=== PATIENT | female | born 1995 | race American Indian/Alaskan Native ===

== ENCOUNTER 2017-11-26 14:29 | Emergency (ER) | payer MEDICAID, OTHER ==
[2017-11-26 14:29] VITALS: BMI 28.5
[2017-11-26 14:52] VITALS: BP 118/79; PULSE 72; RESP 14; TEMP 98.1; O2SAT 100
--- NOTE | 2017-11-26 15:04 | C.PDOC ---
History Of Present Illness 22 year old female presents to the ED for evaluation of throat pain which began a couple days ago. Patient reports seeing a dark spot in the back of her throat. Patient also complains of anal pressure felt right before she moves her bowels. She denies trouble swallowing, fever, chills, constipation, diarrhea. Time Seen by Provider: 11/26/17 14:59 Chief Complaint (Nursing): ENT Problem History Per: Patient History/Exam Limitations: no limitations Onset/Duration Of Symptoms: Days Current Symptoms Are (Timing): Still Present Additional History Per: Patient Past Medical History Reviewed: Historical Data, Nursing Documentation, Vital Signs Vital Signs: Last Vital Signs Temp 98.1 F 11/26/17 14:47 Pulse 72 11/26/17 14:47 Resp 14 11/26/17 14:47 BP 118/79 11/26/17 14:47 Pulse Ox 100 11/26/17 18:31 - Medical History PMH: Bronchitis Surgical History: No Surg Hx Family History: States: Unknown Family Hx - Social History Hx Tobacco Use: No Hx Alcohol Use: Yes Hx Substance Use: No - Immunization History Hx Tetanus Toxoid Vaccination: No Hx Influenza Vaccination: No Hx Pneumococcal Vaccination: No Review Of Systems Constitutional: Negative for: Fever, Chills ENT: Positive for: Throat Pain Gastrointestinal: Negative for: Diarrhea, Constipation Genitourinary: Positive for: Other (anal pressure ) Physical Exam - Physical Exam Appears: Non-toxic, No Acute Distress Skin: Normal Color, Warm, Dry Head: Atraumatic, Normacephalic Eye(s): bilateral: Normal Inspection, EOMI Ear(s): Bilateral: Normal Oral Mucosa: Moist Throat: Normal, No Erythema, No Exudate, No Other Neck: Supple Chest: Symmetrical, No Deformity, No Tenderness Cardiovascular: Rhythm Regular, No Murmur Respiratory: Normal Breath Sounds, No Rales, No Rhonchi, No Wheezing Extremity: Normal ROM Extremity: Bilateral: Atraumatic, Normal Color And Temperature, Normal ROM Neurological/Psych: Oriented x3, Normal Speech Gait: Steady ED Course And Treatment O2 Sat by Pulse Oximetry: 100 (on RA) Pulse Ox Interpretation: Normal Medical Decision Making Medical Decision Making: Patient is resting comfortably, showing no signs of distress and is stable for discharge. She is advised to follow up with her PMD within 1-2 days for further evaluation. Disposition Counseled Patient/Family Regarding: Need For Followup, Rx Given - Disposition Referrals: [facility] [Outside] [facility] [Outside] Disposition: HOME/ ROUTINE Disposition Time: 15:04 Condition: GOOD Additional Instructions: Your throat was normal, if you have any pain please follow up with your primary or clinic. 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 - Scribe Statement The provider has reviewed the documentation as recorded by the Scribe (Qiana Mcfadden) All medical record entries made by the Scribe were at my direction and personally dictated by me. I have reviewed the chart and agree that the record accurately reflects my personal performance of the history, physical exam, medical decision making, and the department course for this patient. I have also personally directed, reviewed, and agree with the discharge instructions and disposition.
== END 2017-11-26 15:50 | disposition home or self-care (01) ==
LOC: C.ER 14:29
DX: K59.00 Constipation, unspecified (principal)

== ENCOUNTER 2018-07-27 22:26 | Emergency (ER) | payer MEDICAID, OTHER ==
[2018-07-27 22:26] VITALS: BMI 28.5
[2018-07-27 22:51] VITALS: BP 135/80; PULSE 61; RESP 18; TEMP 98.4; O2SAT 100
--- NOTE | 2018-07-27 23:05 | C.PDOC ---
History Of Present Illness 22 y/o female with known history of sciatica presents to the ED complaining of pain to right lower back for the past few days worse with movements. States she usually has sciatica pain on the left and has never had it on the right. Denies recent fall or trauma. Otherwise denies any numbness, weakness, tingling, saddle anesthesia, dysuria, frequency, or incontinence. Additionally patient reports having intermittent dizziness, which is now resolved. Time Seen by Provider: 07/27/18 23:04 Chief Complaint (Nursing): Back Pain History Per: Patient History/Exam Limitations: no limitations Onset/Duration Of Symptoms: Days Current Symptoms Are (Timing): Still Present Previous Symptoms: Back Pain Associated Symptoms: None Past Medical History Reviewed: Historical Data, Nursing Documentation, Vital Signs Vital Signs: Last Vital Signs Temp 98.4 F 07/27/18 22:48 Pulse 61 07/27/18 22:48 Resp 18 07/27/18 22:48 BP 135/80 07/27/18 22:48 Pulse Ox 100 07/28/18 02:52 - Medical History PMH: Bronchitis Family History: States: Unknown Family Hx - Social History Hx Tobacco Use: No Hx Alcohol Use: Yes Hx Substance Use: No - Immunization History Hx Tetanus Toxoid Vaccination: No Hx Influenza Vaccination: No Hx Pneumococcal Vaccination: No Review Of Systems Except As Marked, All Systems Reviewed And Found Negative. Constitutional: Negative for: Fever, Chills Gastrointestinal: Negative for: Abdominal Pain Genitourinary: Negative for: Dysuria, Frequency, Incontinence Musculoskeletal: Positive for: Back Pain Neurological: Negative for: Weakness, Numbness, Incoordination Physical Exam - Physical Exam Appears: Non-toxic, No Acute Distress Skin: Normal Color, Warm, Dry Head: Atraumatic, Normacephalic Eye(s): bilateral: PERRL, EOMI, Other (No conjunctival pallor) Oral Mucosa: Moist Chest: Symmetrical Cardiovascular: Rhythm Regular Respiratory: Normal Breath Sounds Gastrointestinal/Abdominal: Bowel Sounds (normal), Soft, No Tenderness, No Distention Back: No CVA Tenderness, Muscle Spasm, Paraspinal Tenderness (to right paralumbar area), Straight Leg Raising (Right side (+) at 45 degrees) Extremity: Bilateral: Atraumatic, No Pedal Edema, Normal Color And Temperature Neurological/Psych: Oriented x3, Normal Speech, Normal Motor, Normal Sensation Gait: Steady ED Course And Treatment O2 Sat by Pulse Oximetry: 100 (RA) Pulse Ox Interpretation: Normal Progress Note: Patient is currently on her menses, given valium PO in the ED for her spasm. On reassessment, patient is resting comfortably, and is in no acute distress. Patient was instructed to follow up with physician/clinic in 1- 2 days for further evaluation. Reassessment Condition: Improved Disposition Counseled Patient/Family Regarding: Diagnosis, Need For Followup, Rx Given - Disposition Referrals: Non [facility] Provider, [Primary Care Provider] - Disposition: HOME/ ROUTINE Disposition Time: 23:05 Condition: STABLE Additional Instructions: Please follwo up with PMD Take medications as directed Return to ER if worse Prescriptions: Cyclobenzaprine [Cyclobenzaprine HCl] 10 mg PO HS #7 tab Ibuprofen [Motrin] 600 mg PO Q6H #20 tab Instructions: Low Back Pain (DC) Forms: [employer] (Mongolian), Work Excuse - POA Present On Arrival: None - Clinical Impression Clinical Impression: Low back pain - 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 - Scribe Statement The provider has reviewed the documentation as recorded by the Scribe (Yarelis Davila) All medical record entries made by the Scribe were at my direction and personally dictated by me. I have reviewed the chart and agree that the record accurately reflects my personal performance of the history, physical exam, medical decision making, and the department course for this patient. I have also personally directed, reviewed, and agree with the discharge instructions and disposition.
== END 2018-07-27 23:59 | disposition home or self-care (01) ==
LOC: SUPCPDRO 22:26 → C.ER 22:26
DX: M54.5 Low back pain (principal)

== ENCOUNTER 2018-10-23 18:30 | Emergency (ER) | payer SELFPAY ==
[2018-10-23 18:30] VITALS: BMI 28.5
[2018-10-23 18:41] VITALS: BP 118/79; PULSE 64; RESP 18; TEMP 98; O2SAT 100
--- NOTE | 2018-10-23 19:33 | C.PDOC ---
History Of Present Illness 22 year old female presents to the ED complaining of intermittent sore throat with associated cough for 2 weeks. Denies any fever, chills, ear pain, nose congestion, nausea, vomiting, chest pain, shortness of breath. Also complains of right shoulder pain for one week. Reports she does heavy lifting at work. Denies any trauma, injury, weakness, or numbness. Time Seen by Provider: 10/23/18 19:20 Chief Complaint (Nursing): ENT Problem History Per: Patient History/Exam Limitations: no limitations Onset/Duration Of Symptoms: Days Current Symptoms Are (Timing): Still Present Past Medical History Reviewed: Historical Data, Nursing Documentation, Vital Signs Vital Signs: Last Vital Signs Temp 98 F 10/23/18 18:36 Pulse 64 10/23/18 18:36 Resp 18 10/23/18 18:36 BP 118/79 10/23/18 18:36 Pulse Ox 100 10/23/18 18:36 - Medical History PMH: Bronchitis Surgical History: Family History: States: No Known Family Hx - Social History Hx Tobacco Use: No Hx Alcohol Use: Yes Hx Substance Use: No - Immunization History Hx Tetanus Toxoid Vaccination: No Hx Influenza Vaccination: No Hx Pneumococcal Vaccination: No Review Of Systems Except As Marked, All Systems Reviewed And Found Negative. Constitutional: Negative for: Fever, Chills ENT: Positive for: Throat Pain. Negative for: Ear Pain, Nose Discharge, Nose C ongestion Cardiovascular: Negative for: Chest Pain Respiratory: Positive for: Cough. Negative for: Shortness of Breath Gastrointestinal: Negative for: Nausea, Vomiting Musculoskeletal: Positive for: Shoulder Pain (right) Neurological: Negative for: Weakness, Numbness Physical Exam - Physical Exam Appears: Non-toxic, No Acute Distress Skin: Warm, Dry, No Rash Head: Normacephalic Eye(s): bilateral: Normal Inspection Nose: Normal Oral Mucosa: Moist Tongue: Normal Appearing Lips: Normal Appearing Teeth: Normal Dentition Gingiva: Normal Appearing Throat: Normal, No Erythema, No Exudate Neck: Supple Chest: Symmetrical Cardiovascular: Rhythm Regular Respiratory: No Rales, No Rhonchi, No Wheezing Extremity: Normal ROM, Capillary Refill (less than 2 sec to right shoudler), No Deformity, No Swelling Extremity: Bilateral: Atraumatic, Normal Color And Temperature, Normal ROM Neurological/Psych: Oriented x3, Normal Speech Gait: Steady ED Course And Treatment O2 Sat by Pulse Oximetry: 100 (RA) Pulse Ox Interpretation: Normal Progress Note: Patient given follow up instructions. Instructed to return to ER if symptoms worsen or new symptoms arise. Disposition Counseled Patient/Family Regarding: Diagnosis, Need For Followup, Rx Given - Disposition Referrals: [facility] [Outside] Disposition: HOME/ ROUTINE Disposition Time: 19:30 Condition: STABLE Additional Instructions: Take medications as directed Follow up with PMD Return to ER If worse Prescriptions: Cetirizine HCl [Zyrtec] 10 mg PO DAILY #14 capsule Ibuprofen [Motrin] 600 mg PO Q6H #20 tab Instructions: Shoulder Sprain (DC), Viral Pharyngitis (DC) Forms: 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 - Scribe Statement The provider has reviewed the documentation as recorded by the Scribgume Huffman All medical record entries made by the Raffiibgume were at my direction and personally dictated by me. I have reviewed the chart and agree that the record accurately reflects my personal performance of the history, physical exam, medical decision making, and the department course for this patient. I have also personally directed, reviewed, and agree with the discharge instructions and disposition.
== END 2018-10-23 19:40 | disposition home or self-care (01) ==
LOC: C.ER 18:30
DX: J02.9 Acute pharyngitis, unspecified (principal); M25.511 Pain in right shoulder

== ENCOUNTER 2019-02-08 23:07 | Emergency (ER) | payer MEDICAID ==
[2019-02-08 23:07] VITALS: BMI 28.5
[2019-02-08 23:16] VITALS: RESP 18
[2019-02-08 23:41] LABS: SQUAMOUS EPITHIAL 53 /hpf (0-5); URINE BACTERIA RARE (<OCC); URINE BILIRUBIN NEGATIVE (NEGATIVE); URINE BLOOD NEGATIVE (NEGATIVE); URINE CLARITY Hazy (Clear); URINE COLOR Yellow (YELLOW); URINE GLUCOSE (UA) NORMAL (Normal); URINE LEUKOCYTE ESTERASE 2+ Leu/uL (Negative); URINE PROTEIN NEGATIVE (NEGATIVE)
[2019-02-08 23:42] LABS: HCG,QUALITATIVE URINE NEGATIVE (NEGATIVE)
--- NOTE | 2019-02-09 00:06 | C.PDOC ---
History Of Present Illness Patient presents to ED c/o pressure sensation in her rectal area since this morning. She denies dysuria/hematuria, fever, vaginal bleeding/discharge, rectal bleeding or masses, nausea/vomiting/diarrhea. She admits to one prior episode that was similar, was told it was "constipation". Time Seen by Provider: 02/08/19 23:19 Chief Complaint (Nursing): Abdominal Pain History Per: Patient History/Exam Limitations: no limitations Onset/Duration Of Symptoms: Hrs Current Symptoms Are (Timing): Still Present Severity: Mild Quality Of Discomfort: Pressure Past Medical History Reviewed: Historical Data, Nursing Documentation, Vital Signs Vital Signs: Last Vital Signs Temp 98.5 F 02/08/19 23:12 Pulse 80 02/08/19 23:12 Resp 18 02/08/19 23:12 BP 110/73 02/08/19 23:12 Pulse Ox 99 02/08/19 23:12 - Medical History PMH: Bronchitis Surgical History: Family History: States: No Known Family Hx - Social History Hx Tobacco Use: No Hx Alcohol Use: Yes Hx Substance Use: No - Immunization History Hx Tetanus Toxoid Vaccination: No Hx Influenza Vaccination: No Hx Pneumococcal Vaccination: No Review Of Systems Constitutional: Negative for: Fever, Chills Cardiovascular: Negative for: Chest Pain, Palpitations Respiratory: Negative for: Shortness of Breath Gastrointestinal: Positive for: Other (rectal pressure). Negative for: Nausea, Vomiting, Abdominal Pain, Diarrhea Genitourinary: Negative for: Dysuria, Hematuria, Vaginal Discharge, Vaginal Bleeding Skin: Negative for: Rash Physical Exam - Physical Exam Appears: Well, Non-toxic, No Acute Distress Skin: Normal Color, Warm, Dry Eye(s): bilateral: Normal Inspection Oral Mucosa: Moist Cardiovascular: Rhythm Regular Respiratory: Normal Breath Sounds, No Rales, No Rhonchi, No Wheezing Gastrointestinal/Abdominal: Normal Exam, Bowel Sounds, Soft, No Tenderness Rectal: Rectal Tone (normal ), No Blood Streaked Stool, No Hemorrhoids, No Mass, No Tenderness, Other (hard stool in vault, no fissures) Extremity: Bilateral: Atraumatic, Normal ROM Neurological/Psych: Oriented x3 ED Course And Treatment - Laboratory Results Lab Results: Urine Color Yellow (YELLOW) 02/08/19 23:30 Urine Clarity Hazy (Clear) 02/08/19 23:30 Urine pH 6.0 (5.0-8.0) 02/08/19 23:30 Ur Specific [place] 1.019 (1.003-1.030) 02/08/19 23:30 Urine Protein Negative mg/dL (NEGATIVE) 02/08/19 23:30 Urine Glucose (UA) Normal mg/dL (Normal) 02/08/19 23:30 Urine Ketones Negative mg/dL (NEGATIVE) 02/08/19 23:30 Urine Blood Negative (NEGATIVE) 02/08/19 23:30 Urine Nitrate Negative (NEGATIVE) 02/08/19 23:30 Urine Bilirubin Negative (NEGATIVE) 02/08/19 23:30 Urine Urobilinogen 2.0 mg/dL (0.2-1.0) H 02/08/19 23:30 Ur Leukocyte Esterase 2+ [place]/uL (Negative) H 02/08/19 23:30 Urine WBC (Auto) 15 /hpf (0-5) H 02/08/19 23:30 Urine RBC (Auto) 2 /hpf (0-3) 02/08/19 23:30 Ur Squamous Epith Cells 53 /hpf (0-5) H 02/08/19 23:30 Urine Bacteria Rare (<OCC) 02/08/19 23:30 Urine HCG, Qual Negative (NEGATIVE) 02/08/19 23:30 Urine HCG, Qual Negative (NEGATIVE) 02/08/19 23:30 O2 Sat by Pulse Oximetry: 99 (RA) Pulse Ox Interpretation: Normal Progress Note: UA, Upreg ordered and reviewed. Suspect hard stool/constipation, although patient states she have daily normal BMs. Rx for colace given. Patient instructed to follow up with PMD/clinic in 1-2 days, and understands she should return to ED if symptoms worsen. Disposition Counseled Patient/Family Regarding: Diagnosis, Need For Followup, Rx Given - Disposition Referrals: Eduardo Tran MD [Staff Provider] - Disposition: HOME/ ROUTINE Disposition Time: 00:00 Condition: STABLE Additional Instructions: FOLLOW UP WITH YOUR DOCTOR IN 1-2 DAYS DRINK PLENTY OF WATER AND INCREASE FIBER IN YOUR DIET RETURN TO ER IF YOUR SYMPTOMS WORSEN Prescriptions: Docusate [Colace] 100 mg PO DAILY #30 cap Instructions: Constipation, Adult (DC) Forms: [employer] (Lithuanian), Work Excuse Print Language: BAHAMIAN - Clinical Impression Clinical Impression: Constipation, Hard stool
[2019-02-09 01:05] VITALS: BP 113/74; PULSE 67; TEMP 98.6; O2SAT 100
== END 2019-02-09 00:35 | disposition home or self-care (01) ==
LOC: C.ER 23:07
DX: K59.00 Constipation, unspecified (principal)